=== PATIENT | female | born 1955 | race Caucasian/White ===

== ENCOUNTER 2016-09-07 16:35 | Emergency (ER) | payer BC ==
[2016-09-07] MEDS ORDERED: Sodium Chloride 0.9% 10 ML Syringe FLUSH PRN (17:03)
--- NOTE | 2016-09-07 17:09 | EDM.PDOC ---
ED HPI RENAL/ - General Chief Complaint: Genitourinary Problem Stated Complaint: FEVER, BOTHERS WHEN URINE Time Seen by Provider: 09/07/16 16:50 Source: Reports: Patient History Limitations: Reports: No limitations - History of Present Illness INITIAL COMMENTS - FREE TEXT/NARRATIVE: c/o L flank pain and fatigue awoke 3d ago with cramp in mid abd, voided with mild dysuria, cramp better, then pain in L flank, not severe, no pain now, no freq, has had dysuria including today, no n/v head has felt "hot", otherwise fever, has had chills and occasional sweat, weak begun phentiramine 2m ago by PCP Dr Keyur Calvin nl BM lost 10 lbs in past 2m - Related Data Allergies/ADRs: Allergies Allergy/AdvReac Type Severity Reaction Status Date / Time No Known Allergies Allergy Verified 09/07/16 16:48 Home Meds: Home Meds Ciprofloxacin HCl [Cipro] 500 mg PO BID #14 tablet 09/07/16 [Rx] Lisinopril 5 mg PO DAILY 09/07/16 [History] Omeprazole 20 mg PO DAILY 09/07/16 [History] Phentermine HCl 37.5 mg PO DAILY 09/07/16 [History] ED ROS GENERAL - Review of Systems Review Of Systems: See Below Constitutional: Reports: no symptoms HEENT: Reports: No symptoms Respiratory: Reports: No Symptoms Cardiovascular: Reports: No symptoms Endocrine: Reports: no symptoms GI/Abdominal: Reports: No symptoms : Reports: dysuria Musculoskeletal: Reports: no symptoms Skin: Reports: no symptoms Neurological: Reports: No Symptoms Psychiatric: Reports: No symptoms Hematologic/Lymphatic: Reports: no symptoms Immunologic: Reports: no symptoms ED EXAM, RENAL/ - Physical Exam Exam: See Below Exam Limited By: No limitations General Appearance: alert, WD/WN, no apparent distress Nose: normal inspection, normal mucosa, no blood Throat/Mouth: Normal inspection, Normal lips, Normal teeth, Normal gums, Normal oropharynx, Normal voice, No airway compromise Head: atraumatic, normocephalic Neck: normal inspection, supple, non-tender, full range of motion Respiratory/Chest: no respiratory distress, lungs clear, normal breath sounds, no accessory muscle use, chest non-tender Cardiovascular: normal peripheral pulses, regular rate, rhythm, no edema, no gallop, no JVD, no rub GI/Abdominal: normal bowel sounds, soft, no organomegaly, no distention, no abnormal bruit, other (slight tender L flank, mild suprapubic tender) Back Exam: normal inspection, full range of motion, other (no CVAT) Extremities: normal inspection, normal range of motion, non-tender, no pedal edema Neurological: alert, oriented, CN II-XII intact, normal cognition, normal gait, no motor/sensory deficits Psychiatric: normal affect, normal mood Skin Exam: Warm, Dry, Intact, Normal color, No rash Lymphatic: no adenopathy Course - Vital Signs Last Recorded V/S: Last Vital Signs Temp 37.0 C 09/07/16 16:58 Pulse 102 H 09/07/16 18:25 Resp 20 09/07/16 16:58 BP 127/61 09/07/16 16:58 Pulse Ox 100 09/07/16 16:58 - Orders/Labs/Meds Orders: Active Orders 24 hr Category Date Time Status CULTURE URINE [RM] Stat Lab 09/07/16 17:25 Received Sodium Chloride 0.9% [Normal Saline] 1,000 ml Med 09/07/16 17:15 Active IV ASDIRECTED Sodium Chloride 0.9% [Normal Saline] 1,000 ml Med 09/07/16 18:45 Ordered IV ASDIRECTED Sodium Chloride 0.9% [Saline Flush] Med 09/07/16 17:03 Active 10 ml FLUSH ASDIRECTED PRN Saline Lock Insert [OM.PC] Routine Oth 09/07/16 17:03 Ordered Medication Orders Sodium Chloride (Normal Saline) 1,000 mls @ 999 mls/hr IV ASDIRECTED DRU Last Admin: 09/07/16 17:25 Dose: 999 mls/hr Sodium Chloride (Normal Saline) 1,000 mls @ 999 mls/hr IV ASDIRECTED DRU Last Admin: 09/07/16 18:50 Dose: 999 mls/hr Sodium Chloride (Saline Flush) 10 ml FLUSH ASDIRECTED PRN PRN Reason: Keep Vein Open Last Admin: 09/07/16 17:24 Dose: 10 ml Labs: Laboratory Tests 09/07/16 09/07/16 09/07/16 Range/Units 16:50 17:15 17:15 WBC 17.4 H (4.5-12.0) X10-3/uL RBC 3.98 (3.23-5.20) x10(6)uL Hgb 12.8 (11.5-15.5) g/dL Hct 38.0 (30.0-51.3) % MCV 95.5 (80-96) fL MCH 32.1 (27.7-33.6) pg MCHC 33.6 (32.2-35.4) g/dL RDW 12.5 (11.5-15.5) % Plt Count 199 (125-369) X10(3)uL MPV 8.3 (7.4-10.4) fL Add Manual Diff Yes Neutrophils % (Manual) 91 H (46-82) % Band Neutrophils % 1 (0-6) % Lymphocytes % (Manual) 3 L (13-37) % Monocytes % (Manual) 5 (4-12) % Sodium 125 L (135-145) mmol/L Potassium 4.0 (3.5-5.3) mmol/L Chloride 94 L (100-110) mmol/L Carbon Dioxide 18 L (23-29) mmol/L BUN 27 H (8-23) mg/dL Creatinine 1.6 H (0.6-1.3) mg/dL Est Cr Clr Drug Dosing 32.29 mL/min Estimated GFR (MDRD) 33 L (>60) BUN/Creatinine Ratio 16.9 (9-20) Glucose 134 H (80-116) mg/dL Calcium 8.5 L (8.6-10.2) mg/dL Total Bilirubin 1.1 (0.1-1.3) mg/dL AST 23 (5-27) IU/L ALT 20 (14-26) IU/L Alkaline Phosphatase 110 (56-112) IU/L C-Reactive Protein > 20.0 H* (0.0-1.0) mg/dL Total Protein 7.5 (6.0-8.0) g/dL Albumin 3.5 (3.2-4.6) g/dL Globulin 4.0 g/dL Albumin/Globulin Ratio 0.9 Urine Color Yellow (YELLOW) Urine Appearance Slightly cloudy (CLEAR) Urine pH 5.0 (5.0-6.5) Ur Specific [place] 1.015 (1.010-1.025) Urine Protein 100 H (NEGATIVE) mg/dL Urine Glucose (UA) Normal (NEGATIVE) mg/dL Urine Ketones Negative (NEGATIVE) mg/dL Urine Occult Blood Large H (NEGATIVE) Urine Nitrite Negative (NEGATIVE) Urine Bilirubin Small H (NEGATIVE) Urine Urobilinogen 4 H (NEGATIVE) mg/dL Ur Leukocyte Esterase Large H (NEGATIVE) Urine RBC 20-30 H (0) Urine WBC >100 H (0) Ur Squamous Epith Cells Many H (NS,R,O) Urine Bacteria Many H (NS) 09/07/16 Range/Units 17:25 WBC (4.5-12.0) X10-3/uL RBC (3.23-5.20) x10(6)uL Hgb (11.5-15.5) g/dL Hct (30.0-51.3) % MCV (80-96) fL MCH (27.7-33.6) pg MCHC (32.2-35.4) g/dL RDW (11.5-15.5) % Plt Count (125-369) X10(3)uL MPV (7.4-10.4) fL Add Manual Diff Neutrophils % (Manual) (46-82) % Band Neutrophils % (0-6) % Lymphocytes % (Manual) (13-37) % Monocytes % (Manual) (4-12) % Sodium (135-145) mmol/L Potassium (3.5-5.3) mmol/L Chloride (100-110) mmol/L Carbon Dioxide (23-29) mmol/L BUN (8-23) mg/dL Creatinine (0.6-1.3) mg/dL Est Cr Clr Drug Dosing mL/min Estimated GFR (MDRD) (>60) BUN/Creatinine Ratio (9-20) Glucose (80-116) mg/dL Calcium (8.6-10.2) mg/dL Total Bilirubin (0.1-1.3) mg/dL AST (5-27) IU/L ALT (14-26) IU/L Alkaline Phosphatase (56-112) IU/L C-Reactive Protein (0.0-1.0) mg/dL Total Protein (6.0-8.0) g/dL Albumin (3.2-4.6) g/dL Globulin g/dL Albumin/Globulin Ratio Urine Color Yellow (YELLOW) Urine Appearance Slightly cloudy (CLEAR) Urine pH 5.0 (5.0-6.5) Ur Specific [place] 1.015 (1.010-1.025) Urine Protein 100 H (NEGATIVE) mg/dL Urine Glucose (UA) Normal (NEGATIVE) mg/dL Urine Ketones Negative (NEGATIVE) mg/dL Urine Occult Blood Moderate H (NEGATIVE) Urine Nitrite Negative (NEGATIVE) Urine Bilirubin Small H (NEGATIVE) Urine Urobilinogen 4 H (NEGATIVE) mg/dL Ur Leukocyte Esterase Moderate H (NEGATIVE) Urine RBC 10-20 H (0) Urine WBC 30-40 H (0) Ur Squamous Epith Cells Few H (NS,R,O) Urine Bacteria Many H (NS) Meds: Medications Generic Name Dose Route Start Last Admin Trade Name Freq PRN Reason Stop Dose Admin Sodium Chloride 1,000 mls @ 999 mls/hr 09/07/16 17:15 09/07/16 17:25 Normal Saline IV 999 mls/hr ASDIRECTED DRU Administration Sodium Chloride 1,000 mls @ 999 mls/hr 09/07/16 18:45 09/07/16 18:50 Normal Saline IV 999 mls/hr ASDIRECTED DRU Administration Sodium Chloride 10 ml 09/07/16 17:03 09/07/16 17:24 Saline Flush FLUSH 10 ml ASDIRECTED PRN Administration Keep Vein Open Discontinued Medications Generic Name Dose Route Start Last Admin Trade Name Freq PRN Reason Stop Dose Admin Ceftriaxone Sodium Confirm 09/07/16 17:51 09/07/16 17:57 Rocephin Administered 09/07/16 17:52 Not Given Dose 1 gm IV .STK-MED ONE Ceftriaxone Sodium 1,000 mg/ 50 mls @ 200 mls/hr 09/07/16 17:39 09/07/16 17: 41 Sodium Chloride IV 09/07/16 17:53 Not Given ONETIME ONE Ceftriaxone Sodium 1 gm/ 50 mls @ 100 mls/hr 09/07/16 17:41 09/07/16 17:54 Sodium Chloride IV 09/07/16 18:10 100 mls/hr ONETIME ONE Administration Sodium Chloride Confirm 09/07/16 17:50 09/07/16 17:57 Normal Saline Administered 09/07/16 17:51 Not Given Dose 50 mls @ as directed .ROUTE .STK-MED ONE - Re-Assessments/Exams Free Text/Narrative Re-Assessment/Exam: 09/07/16 18:33 HR 120 to 102 after 1 liter NS, will give a 2nd liter, pt feeling better, no longer cold, labs reviewed with pt, labs c/w pyelo and dehydration, Na 125 should improve with IVF--as should prerenal BUN/creat 27/1.6 which are no doubt above her baseline Free Text/Narrative Re-Assessment/Exam: 09/07/16 19:23 HR 96 after 1.5 liters NS, additional 0.5 liters currently running in, pt resting comfortably, no c/o Departure - Departure Time of Disposition: 19:50 Disposition: DC/Tfer to [facility]04 Condition: good Clinical Impression: Acute pyelonephritis, Dehydration, Acute prerenal azotemia Prescriptions: Ciprofloxacin HCl [Cipro] 500 mg PO BID #14 tablet Instructions: Urinary Tract Infection, Adult Referrals: Lucero Salcedo FARM HELPER [Primary Care Provider] - Forms: ED Department Discharge Additional Instructions: For infection, take ciprofloxacin 500 mg 1 tab 2 times a day beginning tomorrow morning. Increase fluids without caffeine or alcohol. Rest for next 24 hours. Do not return to work until cleared by your physician. Do not take phentiramine tomorrow. For pain, as needed, take acetaminophen 500 mg 2 tabs 4 times a day. See your doctor tomorrow. Return to ED if you are feeling worse. Call your Physician or Return to Emergency Department if: * Your condition worsens in any way. * You develop fever greater than 100.4. * You have vomiting that does not stop with medications. * You have pain that is not controlled with medications. - My Orders Last 24 Hours: My Active Orders 09/07/16 17:03 Sodium Chloride 0.9% [Saline Flush] 10 ml FLUSH ASDIRECTED PRN Saline Lock Insert [OM.PC] Routine 09/07/16 17:15 Sodium Chloride 0.9% [Normal Saline] 1,000 ml IV ASDIRECTED 09/07/16 17:25 CULTURE URINE [RM] Stat 09/07/16 18:45 Sodium Chloride 0.9% [Normal Saline] 1,000 ml IV ASDIRECTED - Assessment/Plan Last 24 Hours: My Active Orders 09/07/16 17:03 Sodium Chloride 0.9% [Saline Flush] 10 ml FLUSH ASDIRECTED PRN Saline Lock Insert [OM.PC] Routine 09/07/16 17:15 Sodium Chloride 0.9% [Normal Saline] 1,000 ml IV ASDIRECTED 09/07/16 17:25 CULTURE URINE [RM] Stat 09/07/16 18:45 Sodium Chloride 0.9% [Normal Saline] 1,000 ml IV ASDIRECTED
[2016-09-07] MEDS ORDERED: Sodium Chloride 0.9% 1,000 ML IV SCH ×2 (17:15→18:45)
[2016-09-07] MEDS ORDERED: cefTRIAXone 1,000 MG in Sodium Chloride 0.9% 50 ML IV ONE (17:39)
[2016-09-07] MEDS ORDERED: cefTRIAXone 1 GM in Sodium Chloride 0.9% 50 ML IV ONE (17:41)
[2016-09-07] MEDS ORDERED: Sodium Chloride 0.9% 50 ML ONE (17:50)
[2016-09-07] MEDS ORDERED: cefTRIAXone 1 GM AdvVial IV ONE (17:51)
[2016-09-07 20:20] VITALS: BP 103/65
== END 2016-09-07 19:50 | disposition home or self-care (01) ==
LOC: FB.ED 16:35
DX: N10 Acute pyelonephritis (principal); E86.0 Dehydration; Z79.899 Other long term (current) drug therapy
CPT/HCPCS: 36415; 80053; 81001; 85025; 86140; 87086; 96361; 96365; 99283; J0696; J7040; J7050

== ENCOUNTER 2019-12-21 09:21 | Emergency (ER) | payer BC ==
[2019-12-21] MEDS ORDERED: Sodium Chloride 0.9% 10 ML Syringe FLUSH PRN (09:53)
[2019-12-21] MEDS ORDERED: Sodium Chloride 0.9% 1,000 ML IV SCH (10:00)
[2019-12-21] MEDS ORDERED: Ondansetron 4 MG/2 ML SDV IVPUSH ONE (10:12)
[2019-12-21] MEDS ORDERED: Ketorolac 30 MG/ML SDV IVPUSH ONE (10:20)
--- NOTE | 2019-12-21 11:31 | EDM.PDOC ---
ED HPI GENERAL MEDICAL PROBLEM - General Stated Complaint: DEHYRATED,DIZZY,HEADACHE Time Seen by Provider: 12/21/19 09:35 Source of Information: Reports: Patient History Limitations: Reports: No Limitations - History of Present Illness INITIAL COMMENTS - FREE TEXT/NARRATIVE: Patient presented to the ED because of N/V x3 days. There is no fever cills,diarrhea but c'o headache, frontal area, 4/10. there is no neck stiffness. 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: - Past Surgical History Female Surgical History: Reports: Tubal Ligation Social & Family History - Caffeine Use Caffeine Use: Reports: Coffee ED ROS GENERAL - Review of Systems Review Of Systems: See Below Constitutional: Reports: No Symptoms HEENT: Reports: No Symptoms Respiratory: Reports: No Symptoms Cardiovascular: Reports: No Symptoms Endocrine: Reports: No Symptoms GI/Abdominal: Reports: Nausea, Vomiting Musculoskeletal: Reports: No Symptoms Skin: Reports: No Symptoms Neurological: Reports: Headache ED EXAM, GI/ABD - Physical Exam Exam: See Below Exam Limited By: No Limitations General Appearance: Alert, No Apparent Distress Ears: Normal External Exam, Normal Canal, Hearing Grossly Normal Nose: Normal Inspection, Normal Mucosa, No Blood Throat/Mouth: Normal Inspection, Normal Lips, Normal Teeth Head: Atraumatic, Normocephalic Neck: Normal Inspection, Supple, Non-Tender, Full Range of Motion Respiratory/Chest: No Respiratory Distress, Lungs Clear, Normal Breath Sounds Cardiovascular: Normal Peripheral Pulses, Regular Rate, Rhythm, No Edema, No Gallop GI/Abdominal Exam: Normal Bowel Sounds, Soft, Non-Tender, No Organomegaly Back Exam: Normal Inspection Extremities: Normal Inspection Neurological: Alert, Oriented, CN II-XII Intact Course - Vital Signs Text/Narrative:: labs reviewed and discussed with patient NS 1 L bolus Zofran 4 mg IV x1 Toradol 30 mg IV x1 - Orders/Labs/Meds Orders: Active Orders 24 hr Category Date Time Status CBC WITH AUTO DIFF [HEME] Stat Lab 12/21/19 10:41 Results Sodium Chloride 0.9% [Normal Saline] 1,000 ml Med 12/21/19 10:00 Active IV ASDIRECTED Sodium Chloride 0.9% [Saline Flush] Med 12/21/19 09:53 Active 10 ml FLUSH ASDIRECTED PRN Saline Lock Insert [OM.PC] Routine Oth 12/21/19 09:53 Ordered Medication Orders Sodium Chloride (Normal Saline) 1,000 mls @ 999 mls/hr IV ASDIRECTED DRU Sodium Chloride (Saline Flush) 10 ml FLUSH ASDIRECTED PRN PRN Reason: Keep Vein Open Labs: Laboratory Tests 12/21/19 12/21/19 Range/Units 10:41 10:41 WBC 3.7 L (4.5-12.0) X10-3/uL RBC 3.58 (3.23-5.20) x10(6)uL Hgb 11.9 (11.5-15.5) g/dL Hct 35.4 (30.0-51.3) % MCV 98.8 H (80-96) fL MCH 33.1 (27.7-33.6) pg MCHC 33.5 (32.2-35.4) g/dL RDW 12.4 (11.5-15.5) % Plt Count 166 (125-369) X10(3)uL MPV 7.7 (7.4-10.4) fL Add Manual Diff Yes Sodium 126 L (135-145) mmol/L Potassium 4.1 (3.5-5.3) mmol/L Chloride 94 L (100-110) mmol/L Carbon Dioxide 29 (21-32) mmol/L BUN 6 L (7-18) mg/dL Creatinine 0.8 (0.55-1.02) mg/dL Est Cr Clr Drug Dosing TNP Estimated GFR (MDRD) > 60 (>60) BUN/Creatinine Ratio 7.5 L (9-20) Glucose 93 (80-116) mg/dL Calcium 8.5 L (8.6-10.2) mg/dL Meds: Medications Generic Name Dose Route Start Last Admin Trade Name Marci PRN Reason Stop Dose Admin Sodium Chloride 1,000 mls @ 999 mls/hr 12/21/19 10:00 Normal Saline IV ASDIRECTED DRU Sodium Chloride 10 ml 12/21/19 09:53 Saline Flush FLUSH ASDIRECTED PRN Keep Vein Open Discontinued Medications Generic Name Dose Route Start Last Admin Trade Name Marci PRN Reason Stop Dose Admin Ketorolac Tromethamine 30 mg 12/21/19 10:20 Toradol IVPUSH 12/21/19 10:21 ONETIME ONE Ondansetron HCl 4 mg 12/21/19 10:12 Zofran IVPUSH 12/21/19 10:13 ONETIME ONE Departure - Departure Time of Disposition: 11:45 Disposition: Home, Self-Care 01 Condition: Good Clinical Impression: Acute gastroenteritis, Headache - Discharge Information Prescriptions: Ondansetron [Zofran ODT] 4 mg PO Q4H PRN #5 tab.dis PRN Reason: Nausea Referrals: Lucero Salcedo, INFECTION CONTROL SPECIALIST [Primary Care Provider] - Additional Instructions: Please read discharge instructions on gastroenteritis increase oral fluids zofran odt 4 mg every 4 hours as needed for nausea take ibuprofen 800 mg with tylenol 1000 mg every 8 hours as needed for headache follow up as needed - My Orders Last 24 Hours: My Active Orders 12/21/19 09:53 Sodium Chloride 0.9% [Saline Flush] 10 ml FLUSH ASDIRECTED PRN Saline Lock Insert [OM.PC] Routine 12/21/19 10:00 Sodium Chloride 0.9% [Normal Saline] 1,000 ml IV ASDIRECTED 12/21/19 10:41 CBC WITH AUTO DIFF [HEME] Stat - Assessment/Plan Last 24 Hours: My Active Orders 12/21/19 09:53 Sodium Chloride 0.9% [Saline Flush] 10 ml FLUSH ASDIRECTED PRN Saline Lock Insert [OM.PC] Routine 12/21/19 10:00 Sodium Chloride 0.9% [Normal Saline] 1,000 ml IV ASDIRECTED 12/21/19 10:41 CBC WITH AUTO DIFF [HEME] Stat
[2019-12-21 19:22] VITALS: BP 157/79; PULSE 63
== END 2019-12-21 11:52 | disposition home or self-care (01) ==
LOC: FB.ED 09:21
DX: K52.9 Noninfective gastroenteritis and colitis, unspecified (principal); R51 Headache; Z79.899 Other long term (current) drug therapy
CPT/HCPCS: 36415; 80048; 85025; 96361; 96374; 96375; 99284-25; J1885; J2405; J7030